=== PATIENT | female | born 1930 | race Caucasian/White ===

== ENCOUNTER → 2017-03-02 | Outpatient (CLI) | payer OTHER ==
[~2017-03-02] MED LIST: ACID REDUCER200 MG PO; ASPIRIN EC81 M1 PO; ASPIRIN81 M2 PO; BENICAR40 MG PO; CIPROFLOXACIN500 M3 PO; COMBIGAN EYE DR10 ML OPHTHALMIC; DIOVAN HCT 1601 EACH PO; EXCEDRIN CAPLE1 EACH PO; FLAGYL500 MG PO; LIPITOR 20 MG T20 M1 PO; LUMIGAN2.5 M1 OP; NITROGLYCERIN0.4 MG SUBLING; NORVASC5 MG PO; PHENERGAN 25 MG25 MG PO; POTASSIUM20 PO; SIMETHICON CHEW80 M1 PO; VITAMIN D1000 UNI1 PO; VITAMIN D400 UNI1 PO; [UNRECOGNIZED DRUG - CODE]; [UNRECOGNIZED DRUG - CODE] PO
== END ==
LOC: M.RAD 11:55
DX: M43.8X4 Other specified deforming dorsopathies, thoracic region (principal); M51.34 Other intervertebral disc degeneration, thoracic region; M51.36 Other intervertebral disc degeneration, lumbar region

== ENCOUNTER → 2017-03-06 | Outpatient (CLI) | payer OTHER ==
[2017-03-06 10:01] VITALS: BP 121/74
== END ==
LOC: M.MRI 08:20
DX: M48.54XA Collapsed vertebra, not elsewhere classified, thoracic region, initial encounter for fracture (principal); M43.8X4 Other specified deforming dorsopathies, thoracic region; R60.0 Localized edema; M40.294 Other kyphosis, thoracic region; M51.24 Other intervertebral disc displacement, thoracic region; M51.34 Other intervertebral disc degeneration, thoracic region; I25.110 Atherosclerotic heart disease of native coronary artery with unstable angina pectoris; K21.9 Gastro-esophageal reflux disease without esophagitis; E78.5 Hyperlipidemia, unspecified; I43 Cardiomyopathy in diseases classified elsewhere

== ENCOUNTER → 2017-03-09 | Outpatient (CLI) | payer OTHER ==
[~2017-03-09] VITALS: Ht 152.4 cm; Wt 52.6 kg
[2017-03-09 09:35] VITALS: BP 143/75
[2017-03-09 09:36] LABS: HEMATOCRIT 39.9 % (37.0-47.0); HEMOGLOBIN 13.5 gm/dL (12.0-15.0); MCH 31.6 pg (26.0-34.0); MCHC 33.8 g/dL (28.0-37.0); MCV 93.3 fL (80.0-100.0); MPV 9.1 fl. (7.2-11.1); RBC 4.28 mil/uL (4.20-5.00); RDW-CV 14.1 % (10.5-14.5); WBC 10.7 thou/uL (4.0-11.0)
[2017-03-09 09:45] LABS: PROTIME 9.9 Seconds (9.20-11.50)
[2017-03-09 11:53] VITALS: BP 153/83
[2017-03-09 12:14] VITALS: BP 149/78
[2017-03-09 12:45] VITALS: BP 140/72
== END ==
LOC: M.INT 08:46 → M.LAB 09:45 → M.INT 09:45
PROVIDERS: Radiology Diagnostic Radiology
DX: M80.88XA Other osteoporosis with current pathological fracture, vertebra(e), initial encounter for fracture (principal); M54.5 Low back pain; Z88.0 Allergy status to penicillin; Z88.2 Allergy status to sulfonamides; Z79.899 Other long term (current) drug therapy; Z79.82 Long term (current) use of aspirin

== ENCOUNTER 2017-03-16 12:58 | Observation (INO) | payer OTHER ==
[~2017-03-16] VITALS: Ht 154.9 cm; Wt 53.1 kg
[~2017-03-16 12:58] MED LIST changes: -SIMETHICON CHEW80 M1 PO
[2017-03-16 13:05] VITALS: BP 158/83
[2017-03-16 13:22] LABS: ABSOLUTE BASOPHILS 0.1 thou/uL (0.0-0.2); ABSOLUTE EOSINOPHILS 0.2 thou/uL (0.0-0.7); ABSOLUTE LYMPHOCYTES 1.7 thou/uL (0.8-5.3); ABSOLUTE MONOCYTES 0.8 thou/uL (0.0-1.2); ABSOLUTE NEUTROPHILS 6.6 thou/uL (1.6-8.1); BASOPHILS 1.3 %; EOSINOPHILS 2.2 %; HEMATOCRIT 38.7 % (37.0-47.0); HEMOGLOBIN 12.9 gm/dL (12.0-15.0); LYMPHOCYTES 18.1 %; MCH 31.1 pg (26.0-34.0); MCHC 33.2 g/dL (28.0-37.0); MCV 93.6 fL (80.0-100.0); MONOCYTES 8.8 %; MPV 8.1 fl. (7.2-11.1); NUCLEATED RBCS 0 /100WBC; PLATELET COUNT* 429 thou/uL (150-400); POLYS 69.6 %; RBC 4.14 mil/uL (4.20-5.00); RDW-CV 13.8 % (10.5-14.5); WBC 9.5 thou/uL (4.0-11.0)
[2017-03-16 13:32] LABS: ANION GAP 6 mmol/L (7-16); APTT 23.6 Seconds (25.0-31.3); BUN 10 mg/dL (7-18); CALCIUM 9.1 mg/dL (8.5-10.1); CHLORIDE 99 mmol/L (98-107); CO2 28 mmol/L (21-32); CREATININE 0.6 mg/dL (0.6-1.3); GLUCOSE 108 mg/dL (70-99); POTASSIUM 4.7 mmol/L (3.5-5.1); SODIUM 133 mmol/L (136-145)
[2017-03-16 13:51] LABS: ALBUMIN 3.2 g/dL (3.4-5.0); ALKALINE PHOSPHATASE 98 U/L (46-116); CK-MB MASS < 0.5 ng/mL (<0.5-3.6); LIPASE 157 U/L (73-393); MAGNESIUM 2.2 mg/dL (1.8-2.4); NT-PRO BRAIN NAT PEPTIDE 201 pg/mL (<300); SGOT 23 U/L (15-37); SGPT 18 U/L (30-65); TOTAL BILIRUBIN 0.3 mg/dL (<0.1-1.0); TROPONIN-I LEVEL <0.06 ng/mL (<0.06)
[2017-03-16 15:36] VITALS: BP 133/84
[2017-03-16 16:10] VITALS: BP 177/87
--- NOTE | 2017-03-16 16:36 | 2DMMODE ---
[place] [address] 2 D/M-MODE ECHOCARDIOGRAM Name: DAVID WESLEY Room: [address] IN [facility]#: [id number] Admission: 03/16/17 Attend Phys: Alejo Caba, Discharge: Date of : [birth year] Date of Service: 03/16/17 1635 Report #: [id number] THIS REPORT FOR: //name// APPROVED REPORT Study performed: 03/16/2017 15:16:51 EXAM: Comprehensive 2D, Doppler, and color-flow Echocardiogram Patient Location: In-Patient Room #: [facility] Status: routine BSA: 1.50 HR: 77 bpm BP: 164/94 mmHg Rhythm: NSR Other Information Study Quality: Good Indications Chest Pain 2D Dimensions LVEF(%): 63.90 (>50%) IVSd: 15.74 (7-11mm) LVOT Diam: 17.64 (18-24mm) LVDd: 36.47 mm PWd: 11.52 (7-11mm) Ascending Ao: 30.06 (22-36mm) LVDs: 24.06 (25-40mm) Aortic Root: 24.55 mm Peralta's LVEF: 63.90 % Volumes Left Atrial Volume (Systole) LA ESV Index: 15.60 mL/m2 Aortic Valve AoV Peak Javier.: 1.88 m/s AO Peak Gr.: 14.11 mmHg LVOT Max P.72 mmHg AO Mean Gr.: 8.17 mmHg LVOT Mean P.78 mmHg LVOT Max V: 1.20 m/s AO V2 VTI: 37.98 cm LVOT Mean V: 0.76 m/s GREGORIO (VTI): 1.51 cm2 LVOT V1 VTI: 23.50 cm AI Bennett: 3.25 m/s2 AI PHT: 351.55 [place] [address] 2 D/M-MODE ECHOCARDIOGRAM Name: DAVID WESLEY Room: [address] ..#: [id number] Admission: 03/16/17 Attend Phys: Alejo Caba, Discharge: Date of : [birth year] Date of Service: 03/16/17 1635 Report #: [id number] Mitral Valve E/A Ratio: 0.62 MV Decel. Time: 248.63 ms MV E Max Javier.: 0.64 m/s MV PHT: 72.10 ms MVA (PHT): 3.05 cm2 TDI E/Lateral E': 9.14 E/Medial E': 9.14 Medial E' Javier.: 0.07 m/s Lateral E' Javier.: 0.07 m/s Pulmonary Valve PV Peak Javier.: 0.87 m/s PV Peak Gr.: 3.01 mmHg Tricuspid Valve TR Peak Gr.: 39.98 mmHg RVSP: 45.00 mmHg Left Ventricle The left ventricle is normal size. There is normal LV segmental wall motion. Moderate concentric left ventricular hypertrophy. Left ventricular systolic function is normal. The left ventricular ejection fraction is within the normal range. LVEF is 60-65%. Grade I - abnormal relaxation pattern. Right Ventricle The right ventricle is normal size. The right ventricular systolic function is normal. Atria The left atrium size is normal. The right atrium size is normal. Aortic Valve Moderate aortic valve sclerosis. Mild to moderate aortic regurgitation. No hemodynamically significant valvular aortic stenosis. Mitral Valve There is mitral annular calcification. There is no mitral valve regurgitation noted. No evidence of mitral valve stenosis. Tricuspid Valve The tricuspid valve is normal in structure. Trace tricuspid regurgitation. The RVSP is 45-[place] [address] 2 D/M-MODE ECHOCARDIOGRAM Name: DAVID WESLEY Room: [address] IN [facility]#: [id number] Admission: 03/16/17 Attend Phys: Alejo Caba, Discharge: Date of : [birth year] Date of Service: 03/16/17 1635 Report #: [id number] Pulmonic Valve The pulmonary valve is normal in structure. There is no pulmonic valvular regurgitation. Great Vessels The aortic root is normal in size. IVC is normal in size and collapses with >50% inspiration Pericardium There is no pericardial effusion. <Conclusion> LVEF is 60-65%. There is normal LV segmental wall motion. Moderate concentric left ventricular hypertrophy. Mild to moderate aortic regurgitation. Moderate aortic valve sclerosis. No hemodynamically significant valvular aortic stenosis. Grade I - abnormal relaxation pattern. <ELECTRONICALLY SIGNED> By: Checo Goodwin MD, FACC 03/16/17 1635 1635 1635 Checo Goodwin MD, FACC /INF
--- NOTE | 2017-03-16 17:21 | NUR ---
PT ARRIVED TO [facility] FLOOR AT 1550, PT ORIENTED TO UNIT AND SERVICES, CARDIOLOGY CONSULTED. PT OFFERED FOOD AND DRINK. NURSING ASSESSMENT COMPLETED. VSS AND NOO C/O PAIN AT THIS TIME. 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
--- NOTE | 2017-03-16 18:35 | NUR ---
PT CONTINUES TO BE A&O X4 AND HAS NO COMPLAINTS AT THIS TIME. WARM BLANKETS PROVIDED PER PT REQUEST. NURSING WILL CONTINUE TO MONITOR.
[2017-03-16 20:30] VITALS: BP 126/76
[2017-03-17 00:31] VITALS: BP 135/75
[2017-03-17 01:21] LABS: ABSOLUTE BASOPHILS 0.1 thou/uL (0.0-0.2); ABSOLUTE EOSINOPHILS 0.3 thou/uL (0.0-0.7); ABSOLUTE LYMPHOCYTES 2.4 thou/uL (0.8-5.3); ABSOLUTE MONOCYTES 0.9 thou/uL (0.0-1.2); ABSOLUTE NEUTROPHILS 5.5 thou/uL (1.6-8.1); BASOPHILS 0.9 %; EOSINOPHILS 3.2 %; HEMATOCRIT 40.8 % (37.0-47.0); HEMOGLOBIN 13.5 gm/dL (12.0-15.0); LYMPHOCYTES 26.4 %; MCH 30.9 pg (26.0-34.0); MCHC 33.2 g/dL (28.0-37.0); MCV 93.1 fL (80.0-100.0); MONOCYTES 10.2 %; NUCLEATED RBCS 0 /100WBC; PLATELET COUNT* 460 thou/uL (150-400); POLYS 59.3 %; RBC 4.38 mil/uL (4.20-5.00); WBC 9.3 thou/uL (4.0-11.0)
[2017-03-17 01:42] LABS: CALCIUM 9.8 mg/dL (8.5-10.1); CREATININE 0.7 mg/dL (0.6-1.3); POTASSIUM 4.4 mmol/L (3.5-5.1)
[2017-03-17 04:35] VITALS: BP 138/75
--- NOTE | 2017-03-17 06:54 | NUR ---
ASSUMED CARE AT 1999, ASSESSMENT CHARTED. PATIENT ALERT/ORIENTED X4, RESTING IN BED. UP WITH SBA TO BATHROOM WITH CANE. DENIES PAIN OR NEEDS. NPO AFTER MIDNIGHT. BED ALARM ON. CALL LIGHT WITHIN REACH, ENCOURAGED TO CALL FOR NEEDS.
--- NOTE | 2017-03-17 10:00 | NUR ---
ASSUMED PT. CARE AND RECEIVED REPORT AT 0730. PT A/OX4, VSS, MONITOR ON TRACING SR WITH BBB. PT. DENIES CURRENT PAIN/SOB. ON RA. FULL ASSESSMENT COMPLETED, REFER TO CHARTING. PT. DOWN FIRST THING THIS MORNING TO COMPLETE MRI. PT. OKAYED TO HAVE LIGHT BREAKFAST AND SEE CV THIS AFTERNOON. WILL CONTINUE WITH PLAN OF CARE.
[2017-03-17 10:30] VITALS: BP 156/83
[2017-03-17 11:04] VITALS: BP 138/75
[2017-03-17 11:30] VITALS: BP 127/66
--- NOTE | 2017-03-17 11:55 | EKG ---
[place] [address] ELECTROCARDIOGRAM REPORT Name: DAVID WESLEY Room: [address]R.#: [id number] Admission: 03/16/17 Attend Phys: Alejo Caba MD Discharge: Date of : [birth year] Report #: [id number] THIS REPORT FOR: //name// [facility] ED Test Date: 2017-03-16 Test Time: 13:05:55 Pat Name: DAVID WESLEY Department: Room: [facility] Gender: F Gear Changer: : 1930 Requested By: Mendez Yanez Order Number: [id number] : Salinas Cruz Measurements Intervals [place] Rate: 72 P: 46 NM: 166 QRS: 102 QRSD: 117 T: 1 QT: 385 QTc: 422 Interpretive Statements Sinus rhythm Probable left atrial enlargement Incomplete right bundle branch block Compared to ECG 11/05/2014 13:53:22 no change Electronically Signed On 03-17-2017 11:55:19 SUPERVISOR PURIFICATION by Salinas Cruz [email or web address] <ELECTRONICALLY SIGNED> By: Salinas Cruz MD, [facility] 03/17/17 1155 1305 1305 Salinas Cruz MD, [facility] /EPI
--- NOTE | 2017-03-17 12:17 | NUR ---
RECEIVED CALL FROM PK GUY FOR PT. TO DC WITHOUT SEEING DR. ANDERSON. PT. NEEDS TO FOLLOW UP OUTPATIENT NEEDED. PT. AWARE OF PLAN.
--- NOTE | 2017-03-17 13:41 | NUR ---
PT. DISCHARGED TO HOME PRIOR TO O.T. EVAL. PLEASE ORDER FURTHER O.T. SERVICES IF NEEDED.
--- NOTE | 2017-03-17 13:44 | NUR ---
DC ORDERS RECEIVED. IV AND MONITOR REMOVED. PT. GIVEN DC INSTRUCTIONS, VERBALIZED UNDERSTANDING. PT. LEFT VIA WHEELCHAIR TO RETURN HOME IN PERSONAL VEHICLE WITH DAUGHTER, ALL BELONGINGS ACCOUNTED FOR.
--- NOTE | 2017-03-25 12:16 | CON ---
[address] [address] CONSULTATION Name: DAVID WESLEY Room: [address] Pedro#: [id number] Admission: 03/16/17 Attend Phys: Alejo Caba MD Discharge: 03/17/17 Date of : [birth year] Report #: [id number] THIS REPORT FOR: //name// CC: Alejo Cope DATE OF SERVICE: 03/16/2017 INPATIENT CONSULTATION PRIMARY CARE PHYSICIAN: Andrew Cope MD POST FRAMER: Salinas Cruz MD, [facility] CHIEF COMPLAINT: Chest pain. HISTORY OF PRESENT ILLNESS: The patient is an 86-year-old female who was brought to the Emergency Room with a pressure in her chest and upper back. She had had vertebroplasty last week. Since that procedure is when she more or less noted these symptoms. They are nonexertional. They are positional. If she turns in a certain way it could be worsened or made it to go away. Her presenting ECG in the Emergency Room demonstrates a sinus rhythm with normal ST segments and completed right bundle branch block abnormality. With her symptoms, she is not short of breath. She is not diaphoretic. In the past, she has been evaluated by my partner, Dr. Cruz for palpitations, but presents in a sinus rhythm without complaints of dizziness, heart racing, skipping. PAST MEDICAL HISTORY: Significant for hypertension, mild aortic insufficiency, normal LV systolic function, questionable history of atrial arrhythmias, although details are not available, this is very remote, hyperlipidemia. HOME MEDICATIONS: Amlodipine 10 mg daily, baby aspirin, cholecalciferol. She is not known to be a diabetic. She does not have peripheral vascular disease. SOCIAL HISTORY: She is . There is no alcohol use. FAMILY HISTORY: Noncontributory. REVIEW OF SYSTEMS: CENTRAL NERVOUS SYSTEM: No seizure or paralysis. GENERAL: [place] [id number] CONSULTATION Name: DAVID WESLEY Room: [address]#: [id number] Admission: 03/16/17 Attend Phys: Alejo Caba MD Discharge: 03/17/17 Date of : [birth year] Report #: [id number] RESPIRATORY: No cough or sputum production. CARDIOVASCULAR: No palpitations, no chest discomfort, positive dyspnea with heavy exertion. Positive history of murmur. ENDOCRINE: No diabetes or thyroid problems. GASTROINTESTINAL: No nausea, vomiting, hematemesis or melena. GENITOURINARY: No dysuria or hematuria. HEMATOLOGIC: No anemia or bleeding disorders. ALLERGIES: No seasonal allergies. Positive medical ASPIRIN ALLERGY. PSYCHIATRIC: No depression or anxiety. MUSCULOSKELETAL: Positive arthritis. SKIN: No rashes. EYES: She does use glasses. EARS, NOSE, THROAT AND MOUTH: No decreased hearing. No bleeding from nose. No dentures. PHYSICAL EXAMINATION: VITAL SIGNS: Blood pressure is 133/84, heart rate 78 in a sinus rhythm, respiratory rate is 14, and pulse ox 94. GENERAL: This is a thin elderly female. She is a good historian. She is in no apparent distress. HEENT: Eyes: EOMs intact. No facial asymmetry. NECK: Supple. No jugular venous distention. CARDIOVASCULAR: Regular. I cannot hear any murmur or S3. LUNGS: Clear to auscultation. ABDOMEN: Nontender. LABORATORY DATA: Electrocardiogram shows a sinus rhythm, right bundle branch block. Hemoglobin 12.9, white blood cell count 9.5, platelet count is 429,000. Sodium 133, potassium 4.7, chloride is 99, CO2 is 28, BUN is 10, creatinine is 0.6. Troponin I is 0.06. BNP is 201. Chest x-ray shows no acute cardiopulmonary process. IMPRESSION AND PLAN: 1. Chest pain. Her symptoms are somewhat atypical, they are reproducible with certain positions and nonexertional, they may be more related to musculoskeletal process, possibly from her procedure. Her ECG is nondiagnostic on presentation. Her initial cardiac troponin is negative. I would cycle a set of cardiac markers and treat accordingly. 2. Hypertension, stable. 3. Aortic insufficiency. She presents with no heart failure. 4. Right bundle branch block, this is likely chronic. <ELECTRONICALLY SIGNED> By: Andrew Nicholson MD, FACC 03/25/17 1216 1630 [id number] Goodwin MD, FACC /nt
== END 2017-03-17 13:10 | disposition home or self-care (01) ==
LOC: M.ERS 12:58 → M.TBA-ER 14:03 → M.2W 14:03
PROVIDERS: Emergency Medicine; ADMIT Internal Medicine
DX: M47.899 Other spondylosis, site unspecified (principal); M80.00XA Age-related osteoporosis with current pathological fracture, unspecified site, initial encounter for fracture; M84.40XA Pathological fracture, unspecified site, initial encounter for fracture; I35.1 Nonrheumatic aortic (valve) insufficiency; I45.10 Unspecified right bundle-branch block; I10 Essential (primary) hypertension; K21.9 Gastro-esophageal reflux disease without esophagitis; E78.5 Hyperlipidemia, unspecified; Z98.890 Other specified postprocedural states; R07.89 Other chest pain

== ENCOUNTER 2017-04-25 14:55 | Emergency (ER) | payer OTHER ==
[~2017-04-25] VITALS: Ht 157.5 cm; Wt 62.3 kg
[2017-04-25 15:39] LABS: ABSOLUTE BASOPHILS 0.1 thou/uL (0.0-0.2); ABSOLUTE EOSINOPHILS 0.2 thou/uL (0.0-0.7); ABSOLUTE LYMPHOCYTES 1.7 thou/uL (0.8-5.3); ABSOLUTE MONOCYTES 0.7 thou/uL (0.0-1.2); ABSOLUTE NEUTROPHILS 4.1 thou/uL (1.6-8.1); BASOPHILS 1.3 %; EOSINOPHILS 3.1 %; HEMATOCRIT 39.4 % (37.0-47.0); HEMOGLOBIN 13.2 gm/dL (12.0-15.0); LYMPHOCYTES 25.6 %; MCH 31.7 pg (26.0-34.0); MCHC 33.4 g/dL (28.0-37.0); MCV 94.7 fL (80.0-100.0); MONOCYTES 9.8 %; MPV 8.5 fl. (7.2-11.1); NUCLEATED RBCS 0 /100WBC; PLATELET COUNT* 341 thou/uL (150-400); POLYS 60.2 %; RBC 4.17 mil/uL (4.20-5.00); RDW-CV 13.8 % (10.5-14.5); WBC 6.8 thou/uL (4.0-11.0)
[2017-04-25 15:47] LABS: CALCIUM 9.8 mg/dL (8.5-10.1); CREATININE 0.6 mg/dL (0.6-1.3); POTASSIUM 4.1 mmol/L (3.5-5.1)
[2017-04-25 15:59] LABS: ALBUMIN 3.4 g/dL (3.4-5.0); TOTAL BILIRUBIN 0.4 mg/dL (<0.1-1.0); TOTAL PROTEIN 6.9 g/dL (6.4-8.2)
[2017-04-25 16:40] LABS: URINE BILIRUBIN NEGATIVE (Negative); URINE BLOOD NEGATIVE (Negative); URINE CLARITY CLEAR; URINE COLOR STRAW; URINE GLUCOSE-RANDOM NEGATIVE (Negative); URINE KETONES NEGATIVE (Negative); URINE LEUKOCYTES-REFLEX NEGATIVE (Negative); URINE NITRITE-REFLEX NEGATIVE (Negative); URINE PROTEIN NEGATIVE (Negative); URINE UROBILINOGEN 0.2 E.U./dl (0.2-1.0)
[2017-04-25] MEDS ORDERED: SIMETHICON CHEW80 M1 PO (17:10)
[2017-04-25 17:22] VITALS: BP 180/80
--- NOTE | 2017-04-26 09:51 | EKG ---
[place] [address] ELECTROCARDIOGRAM REPORT Name: DAVID WESLEY Room: [facility]#: [id number] Admission: 04/25/17 Attend Phys: Discharge: 04/25/17 Date of : [birth year] Report #: [id number] THIS REPORT FOR: //name// [facility] ED Test Date: 2017-04-25 Test Time: 16:02:54 Pat Name: DAVID WESLEY Department: Room: Gender: F Radio Message Router: [place] : 1930 Requested By: Lico Juárez Order Number: [id number] MD: Salinas Cruz Measurements Intervals [place] Rate: 78 P: 40 DE: 188 QRS: 108 QRSD: 124 T: -5 QT: 385 QTc: 439 Interpretive Statements Sinus rhythm Probable left atrial enlargement RBBB and LPFB Compared to ECG 03/16/2017 13:05:55 no change Electronically Signed On 04-26-2017 9:51:22 CDT by Salinas Cruz [email or web address] <ELECTRONICALLY SIGNED> By: Salinas Cruz MD, [facility] 04/26/17 0951 1602 160 Salinas Cruz MD, [facility] /EPI
== END 2017-04-25 17:23 | disposition home or self-care (01) ==
LOC: M.ERS 14:55
PROVIDERS: Nurse Practitioner Psychiatric/Mental Health
DX: R14.1 Gas pain (principal); I10 Essential (primary) hypertension; Z90.49 Acquired absence of other specified parts of digestive tract; K21.9 Gastro-esophageal reflux disease without esophagitis